=== PATIENT | female | born 1935 | race Two or more races ===

== ENCOUNTER → 2018-01-03 | Outpatient (CLI) | payer MEDICARE ==
[2018-01-03 12:32] LABS: Calcium 10.3 mg/dL (8.4-10.2); Potassium 4.9 mmol/L (3.5-5.1)
== END | disposition home or self-care (01) ==
LOC: LABWHC1 11:23
PROVIDERS: ATTEND Internal Medicine Cardiovascular Disease
DX: E78.5 Hyperlipidemia, unspecified (principal); I10 Essential (primary) hypertension; R60.0 Localized edema
CPT/HCPCS: 36415; 80048; 80061; 84450; 84460

== ENCOUNTER → 2018-07-12 | Outpatient (CLI) | payer MEDICARE | LOC: LABPAT 14:14 | PROVIDERS: ATTEND Orthopaedic Surgery | DX: Z01.812 Encounter for preprocedural laboratory examination (principal) | CPT/HCPCS: 87070 ==

== ENCOUNTER 2018-07-25 09:28 | Inpatient (IN) | payer MEDICARE ==
[2018-07-20 15:33] VITALS: BMI 28.3
--- NOTE | 2018-07-24 13:27 | HP ---
HISTORY AND PHYSICAL REASON FOR ADMISSION: Surgery 07/25/2018 Mamta Apple is an 82-year-old patient seen with symptomatic right knee osteoarthritis. Treatment options were discussed with her. She elected to proceed with right total knee arthroplasty. Consent was obtained. Medical clearance provided by Dr. Ozzie Grant. Cardiac clearance by Dr. Pereira. PAST MEDICAL HISTORY: Hypertension, gout. PAST SURGICAL HISTORY: Cholecystectomy. MEDICATIONS: Accupril, allopurinol, Coumadin, Lozol, Tenormin, hydrochlorothiazide. ALLERGIES: CODEINE, INDOCIN, CORTISONE, COLCHICINE. SOCIAL HISTORY: Patient denies tobacco use. PHYSICAL EXAMINATION: Evaluation right knee range of motion is negative 2 to 90 degrees. Tenderness medial joint line. Mild effusion. Crepitus medial patellofemoral compartments. Pain with patellofemoral compression. Ligaments stable. Hip rotation without pain. Distal neurovascular exam intact. RADIOGRAPHS: Radiographs of the right knee revealed severe medial and moderate to severe patellofemoral compartment osteoarthritis. IMPRESSION: 1. Right knee osteoarthritis. 2. Hypertension. 3. Gout. PLAN: Right total knee arthroplasty. Surgery 07/25/2018 MMODL / IJN: [id number] /
[~2018-07-25 09:28] MED LIST: ACETAMINOPHEN TAB 500 MG TAB PO ONE; HYDROmorphone 0.5 MG/0.5 ML SYRINGE IVP PRN; LIDOCAINE 1% 20 ML VIAL (10MG/ML) FOR IV START INTRADERMA PRN; MELOXICAM 7.5 MG TAB PO ONE; ONDANSETRON 4 MG/2 ML VIAL IVP ONE; TRANEXAMIC ACID 1,000 MG in SODIUM CHLORIDE 0.9% 50 ML IVPB ONE; ceFAZolin IN SWFI 2 GM/20 ML SYRINGE IVP ONE
[2018-07-25] MEDS ORDERED: MIDAZOLAM 2 MG/2 ML VIAL ONE (09:53)
[2018-07-25] MEDS: LACTATED RINGERS 1,000 ML IV SCH (10:22)
[2018-07-25 11:53] LABS: INR 1.2 (<1.2); Prothrombin Time 11.1 sec (9.0-12.0)
[2018-07-25] MEDS ORDERED: ROPIVACAINE 246.25 MG, EPINEPHrine 0.5 MG, KETOROLAC 30 MG, cloNIDine HCL/PF 80 MCG, WA... MISCELLANE ONE ×5 (11:53)
[2018-07-25] MEDS ORDERED: MIDAZOLAM 2 MG/2 ML VIAL IVP ONE (12:06)
[2018-07-25] MEDS ORDERED: ceFAZolin 3,000 MG in SODIUM CHLORIDE 0.9% IRRIGATIO 3,000 ML IRRIGATION ONE (12:44)
[2018-07-25] MEDS ORDERED: ROPIVACAINE 1,100 MG, SODIUM CHLORIDE 0.9% 330 ML MISCELLANE PRN ×2 (14:08)
[2018-07-25] MEDS ORDERED: NALOXONE 0.4 MG/ML 1 ML VIAL IV PRN (14:18)
[2018-07-25] MEDS ORDERED: traMADol 50 MG TAB PO PRN (14:18)
[2018-07-25] MEDS ORDERED: ONDANSETRON 4 MG/2 ML VIAL IVP PRN (14:18)
[2018-07-25] MEDS ORDERED: HYDROmorphone 1 MG/ML 1 ML SYRINGE IVP PRN ×3 (14:18)
[2018-07-25] MEDS ORDERED: HYDROcodone/APAP 5-325MG 1 EACH TAB PO PRN (14:18)
--- NOTE | 2018-07-25 14:18 | P.OP ---
Date of Procedure: 07/25/18 Preoperative Diagnosis: Right knee osteoarthritis Postoperative Diagnosis: Right knee osteoarthritis Procedure(s) Performed: Right total knee arthroplasty Implants: 1. Microport evolution MP CS/CR size 4 right cemented femur 2. Microport evolution MP size 4 right cemented tibial baseplate 3. Microport evolution size 4 right MP CS 14 mm polyethylene tibial insert 4. Microport advanced all polyethylene cemented patella 35 mm Anesthesia: local, spinal Surgeon: Ben Anderson Grain Farmer #1: Jarret Vazquez Estimated Blood Loss (ml): 50 Pathology: none sent Condition: stable Disposition: PACU Indications for Procedure: 82-year-old patient seen with symptomatic right knee osteoarthritis. After having treatment options discussed, she elected to proceed with total knee arthroplasty. Operative Findings: see description of procedure Description of Procedure: Patient was taken to the operative suite after having an adductor canal catheter placed by the department of anesthesia. Patient underwent a spinal anesthetic by the department of anesthesia. Patient was given preoperative IV intake antibiotics and TXA. A well-padded tourniquet was placed about the right lower extremity. The lower extremity was then prepped and draped in the normal sterile orthopedic fashion. The extremity was elevated, a tourniquet was insufflated to 300. A standard anterior incision was made sharply through skin. Dissection was taken down through the subcutaneous soft tissues down to the extensor mechanism. A medial arthrotomy was performed, patella was everted and knee was flexed. There was advanced osteoarthritis noted. I introduced my distal intramedullary femoral drill. I then introduced the distal femoral cutting jig. Fabian FLORES secured the cutting jig with 2 pins. I held retractors in position while Fabian FLORES performed the distal femoral resection through the guide area we now removed her distal femoral cutting guide. We now placed our 4-in-1 femoral cutting block and positioned and it was secured with 2 pins by Fabian FLORES while I held the block in position. The distal femoral finishing was now completed. A proximal tibial cutting guide was positioned. I held the guide in the appropriate position with both hands well Fabian FLORES inserted stabilizing pins into the guide. Proximal tibial cut was made. We now placed a trial femoral component into position, along with an appropriate size tibial tray and insert. We now took the knee through range of motion and had full extension good flexion and good overall soft tissue balance noted. The patella was everted and stabilized with 2 towel clips held by Fabian FLORES while I performed a flush with patellar quad tendon utilizing a fresh sawblade. We templated the patella, appropriate drill holes were made. An appropriate trial patella was positioned, knee was taken through full range of motion with the patella tracking very nicely. The trial patella was removed. Drill holes were made through the femoral component. All trial components were removed after marking off the appropriate rotation of the tibia. Retractors were now positioned along the proximal tibia. An appropriate keel punch was made with the appropriate size tibial guide by myself on Fabian FLORES assisted by holding retractors. At this point appropriate size implants were chosen and opened. The joint was irrigated copiously with pulse lavage mechanical irrigation. The posterior capsule was infiltrated with local analgesic. The wound was irrigated with pulse lavage mechanical irrigation. We mixed antibiotic methylmethacrylate. We placed the knee into flexion. We placed multiple retractors assisted by Fabian FLORES to expose the proximal tibia. Once the methyl methacrylate was ready, the tibial component was cemented into place removing any excess methylmethacrylate form by both myself and Fabian FLORES. The femoral component was cemented into place removing the removing any excess methylmethacrylate performed by both myself and Fabian FLORES. We then inserted the appropriate size polyethylene tibial insert. We made sure that it was locked into position. We took the knee into full extension, and then back in a flexion making sure we had removed any excess methylmethacrylate. The patellar component was then cemented down and secured with clamp. Excess methylmethacrylate removed. We kept the knee in full extension, patellar clamp in position until methylmethacrylate had hardened. Once it had hardened the patellar clamp was removed. The knee was taken through full range of motion. The patella tracked nicely. There was good soft tissue balancing. The tourniquet was now released. Additional hemostasis was achieved via electrocautery. A second gram of TXA was given. The wound again was irrigated with pulse lavage mechanical irrigation. The superficial soft tissues were infiltrated local analgesic. The extensor mechanism was repaired with Vicryl. We checked the repair with range of motion and it was stable. The subcutaneous soft tissues were repaired with Vicryl in layers. The skin was approximated with pernio/Dermabond. Sterile dressings were applied followed by loose web roll and Stanislaw bandage. The patient was transferred to a bed, and taken to recovery in stable and satisfactory condition. Fabian FLORES assisted with this complex procedure.
[2018-07-25] MEDS ORDERED: SODIUM CHLORIDE 0.9% 1,000 ML IV SCH (14:30)
--- NOTE | 2018-07-25 15:30 | XR ---
EXAMINATION TYPE: XR knee limited RT DATE OF EXAM: 07/25/2018 COMPARISON: NONE TECHNIQUE: Two views submitted HISTORY: Post op FINDINGS: There is a prosthetic knee in near anatomic alignment. There is soft tissue edema and emphysema. IMPRESSION: 1. Postoperative change. Appears in near-anatomic alignment
[2018-07-25] MEDS: ceFAZolin IN SWFI 2 GM/20 ML SYRINGE IVP SCH ×2 (18:45→23:35)
--- NOTE | 2018-07-25 20:45 | P.ONQ ---
Anesthesiology Proc Note - PNB - Peripheral Nerve Block Performed Right Adductor Canal Infusion Time Out Performed: Yes Procedure Start Time: 12:06 Procedure Stop Time: 12:15 Indication: Acute Post-Operative Pain, Requested by physician Sedation Type: Sedate with meaningful contact maintained Preparation: Sterile Dressing Position: Supine Catheter: Indwelling Needle Types: On-Q Needle Size: 100mm (4") Needle Gauge: 21 Technique: Ultrasound Injectate: 0.5% Ropivacaine (see comment for volume) (ropi .5% 20cc) Blood Aspirated: No Pain Paresthesia on Injection Noted: No Resistance on Injection: Normal Events: Uneventful and Well Tolerated
[2018-07-25] MEDS: SENNOSIDES-DOCUSATE SODIUM 1 EACH TAB PO SCH ×2 (21:17→21:18)
[2018-07-25] MEDS: HYDROcodone/APAP 5-325MG 1 EACH TAB PO PRN (21:17)
[2018-07-26] MEDS: HYDROcodone/APAP 5-325MG 1 EACH TAB PO PRN ×3 (06:46→17:51)
[2018-07-26 07:47] LABS: Basophils % (A) 1 %; Eosinophils # (A) 0.1 k/uL (0-0.7); Eosinophils % (A) 1 %; HGB 11.3 gm/dL (11.4-16.0); Lymphocytes % (A) 13 %; MCH 29.7 pg (25.0-35.0); MCHC 31.5 g/dL (31.0-37.0); MCV 94.3 fL (80.0-100.0); Mean Platelet Volume 7.1; Monocytes # (A) 0.6 k/uL (0-1.0); Monocytes % (A) 7 %; Neutrophils # (A) 5.9 k/uL (1.3-7.7); Neutrophils % (A) 77 %; Platelet Count 242 k/uL (150-450); RBC 3.82 m/uL (3.80-5.40); WBC 7.6 k/uL (3.8-10.6)
--- NOTE | 2018-07-26 08:09 | P.PN ---
Progress Note - Text 07/26 718am 82-year-old female status post total knee replacement by Dr. Anderson. Patient has an On-Q pump for postop pain control with the solution running at 8 mL an hour with a pain score of 1. Plan to continue On-Q pump infusion
[2018-07-26] MEDS: ENOXAPARIN 30 MG/0.3 ML SYRINGE SQ SCH ×2 (08:44→20:54)
[2018-07-26] MEDS: MULTIVITAMINS, THERA 1 EACH TAB PO SCH (08:44)
[2018-07-26] MEDS ORDERED: ACETAMINOPHEN TAB 500 MG TAB PO PRN (10:11)
[2018-07-26] MEDS: LACTATED RINGERS 1,000 ML IV SCH (10:22)
--- NOTE | 2018-07-26 10:40 | P.PN ---
Subjective Progress Note Date: 07/26/18 Principal diagnosis: Status post right total knee arthroplasty Patient is seen today resting in her hospital bed, she appears comfortable. She 's ambulated well with therapy. Her pain is well-controlled. She denies any chest pain or shortness of breath. Objective - Vital Signs Vital signs: Vital Signs Temp 97.8 F 07/26/18 07:00 Pulse 82 07/26/18 07:00 Resp 16 07/26/18 07:00 BP 123/71 07/26/18 07:00 Pulse Ox 99 07/26/18 07:00 Intake & Output 07/25/18 07/26/18 07/26/18 18:59 06:59 18:59 Intake Total 801 2300 120 Output Total 50 Balance 751 2300 120 Weight 72.575 kg Intake: IV 801 Intake, IV Titration 800 Amount Sodium Chloride 0.9% 1, 800 000 ml @ 50 mls/hr IV . Q20H [facility] Rx#:[id number] Oral 1500 120 Output: Estimated Blood Loss 50 Other: Voiding Method Bedside Commode # Voids 2 - Exam Right lower extremity: Incision is clean, dry, and intact. The prineo tape is in good condition. There is minimal soft tissue swelling and ecchymosis surrounding the medial and lateral aspects of the incision. Calf is soft, no tenderness with palpation. Plantar flexion, dorsiflexion, EHL, FHL are intact. Sensory exam to light touch throughout the extremity is intact, dorsal pedis pulses 2+. - Labs CBC & Chem 7: 07/26/18 06:22 Labs: Abnormal Lab Results - Last 24 Hours (Table) 07/25/18 07/26/18 Range/Units 10:23 06:22 Hgb 11.3 L (11.4-16.0) gm/dL INR 1.2 H (<1.2) Assessment and Plan Plan: Assessment: Postoperative day 1 status post right total knee arthroplasty Plan: Pain control, continue supportive oral medication GI and DVT prophylaxis, continue Lovenox until INR is therapeutic Medical recommendations Continue work with physical therapy daily dressing changes/ice and elevate encourage incentive spirometer plan for discharge to rehab in the next 2 days Time with Patient: Less than 30
[2018-07-26 11:06] LABS: INR 1.2 (<1.2); Prothrombin Time 11.1 sec (9.0-12.0)
--- NOTE | 2018-07-26 11:30 | P.CONS ---
History of Present Illness - Reason for Consult Consult date: 07/26/18 medical management Requesting physician: Ben Anderson - Chief Complaint right tka - History of Present Illness 82-year-old female who underwent right total knee arthroplasty on by Dr. Anderson. Dr. Grant was consulted for medical management. The patient was seen and examined at the bedside. Patient states her pain is tolerable. She has been up to the bathroom. Denies shortness of breath. Denies cough or congestion. Denies nausea or vomiting. Reports her appetite is good. Vital signs have been stable. She is on room air with oxygen saturations greater than 92%. She is afebrile. Patient reports she will be going to subacute rehab at the time of discharge. Review of Systems Those systems with pertinent positive or pertinent negative responses have been documented in the HPI Past Medical History Past Medical History: Atrial Fibrillation, Hypertension, Osteoarthritis (OA), Skin Disorder Additional Past Medical History / Comment(s): dog bite 3rd digit rt hand Jul-break in skin-bruising,varicose veins,steroids Jul 2018,rash to back, fungul infection left great toe History of Any Multi-Drug Resistant Organisms: None Reported Past Surgical History: Cholecystectomy Additional Past Surgical History / Comment(s): cardioversion,exploratory lap Past Anesthesia/Blood Transfusion Reactions: No Reported Reaction, Family History of Problems w/ Anesthesia Additional Past Anesthesia/Blood Transfusion Reaction / Comm: no hx blood transfusion. dtr had a hard time waking up from anesthesia. no hx blood transfusion Past Psychological History: Anxiety, Depression Smoking Status: Former smoker Past Alcohol Use History: Rare Additional Past Alcohol Use History / Comment(s): quit smoking 1985,smoke approx 3 yrs,<1ppd Past Drug Use History: None Reported - Past Family History Father Family Medical History: Deep Vein Thrombosis (DVT) Medications and Allergies Home Medications Medication Instructions Recorded Confirmed Type Acetaminophen [Tylenol] 500 mg PO Q4-6H PRN 07/20/18 07/26/18 History Allopurinol [Zyloprim] 100 mg PO DAILY@1700 07/20/18 07/26/18 History Ascorbic Acid [Vitamin C] 1,000 mg PO DAILY 07/20/18 07/26/18 History Atenolol [Tenormin] 25 mg PO DAILY@199907/20/18 07/26/18 History Cholecalciferol [Vitamin D3] 800 unit PO DAILY 07/20/18 07/26/18 History Enoxaparin [Lovenox] 80 mg SQ Q12H 07/20/18 07/26/18 History Hydrochlorothiazide [Hydrodiuril] 25 mg PO DAILY 07/20/18 07/26/18 History Quinapril HCl [Accupril] 20 mg PO BID 07/20/18 07/26/18 History Warfarin [Coumadin] 2.5 mg PO MOWEFRSA 07/20/18 07/26/18 History Warfarin [Coumadin] 1.25 mg PO SUTUTH 07/26/18 07/26/18 History Allergies Allergy/AdvReac Type Severity Reaction Status Date / Time amiodarone [From Cordarone] Allergy Unknown Verified 07/26/18 07:31 indomethacin [From Indocin] Allergy Unknown Verified 07/26/18 07:31 propranolol [From Inderal LA] Allergy Unknown Verified 07/26/18 07:31 codeine AdvReac Nausea & Verified 07/26/18 07:31 [From Tylenol-Codeine #3] Vomiting colchicine AdvReac Diarrhea Verified 07/26/18 07:31 Physical Exam Vitals: Vital Signs Temp Pulse Pulse Pulse Resp BP Pulse Ox 07/26/18 07:00 97.8 F 82 16 123/71 99 07/26/18 00:35 16 07/25/18 20:45 74 16 07/25/18 19:00 98.9 F 74 16 105/64 100 07/25/18 15:15 70 14 123/59 97 07/25/18 15:00 83 15 128/58 99 07/25/18 14:45 72 16 119/56 100 07/25/18 14:41 96.8 F L 85 16 120/65 95 07/25/18 12:28 74 18 162/72 100 Intake and Output 07/25/18 07/26/18 07/26/18 22:59 06:59 14:59 Intake Total 1500 800 120 Balance 1500 800 120 Intake: Intake, IV Titration 400 400 Amount Sodium Chloride 0.9% 1, 400 400 000 ml @ 50 mls/hr IV . Q20H [facility] Rx#:[id number] Oral 1100 400 120 Other: Voiding Method Bedside Commode # Voids 2 2 Weight 72.575 kg GENERAL: This is a 82-year-old female in no apparent distress at the time of examination. Pleasant and cooperative. HEENT: Head is atraumatic, normocephalic. Sclerae anicteric. Conjunctivae are clear. Mucus membranes of the mouth are moist. Neck is supple. RESPIRATORY: Clear to ausculation. No wheezes, rales, or rhonchi. No use of accessory muscles. Patient maintaining oxygen saturation greater than 92% CARDIOVASCULAR: S1 and S2 noted. No systolic or diastolic murmur auscultated. No JVD noted. No S3 or S4 noted. GASTROINTESTINAL: No distention noted. Abdomen soft and round. Normal active bowel sounds auscultated x 4 quadrants. No pain or tenderness noted upon palpation. INTEGUMENTARY: No cyanosis. No jaundice. No rashes noted. No cellulitis noted. EXTREMITIES: Dressing to right knee clean dry and intact. 2+ peripheral pulses. No evidence of peripheral edema. No calf tenderness noted. NEUROLOGIC: Cranial nerves II-XII intact. PSYCHIATRIC: Awake, alert, and oriented X 3. Appropriate affect. Intact judgement and insight. Results CBC & Chem 7: 07/26/18 06:22 Labs: Abnormal Lab Results - Last 24 Hours (Table) 07/25/18 07/26/18 Range/Units 10:23 06:22 Hgb 11.3 L (11.4-16.0) gm/dL INR 1.2 H (<1.2) Assessment and Plan Plan: ASSESSMENT: Osteoarthritis, status post right total knee arthroplasty History of atrial fibrillation Hypertension History of anxiety and depression PLAN: Continue postoperative care per orthopedics Pain control Activity as tolerated PT/OT Incentive spirometer 10 times hour while awake Home meds as appropriate Monitor labs GI prophylaxis: Pepcid 20mg PO BID DVT prophylaxis: Lovenox 30 mg subcu every 12 hours Continue Lovenox until INR is therapeutic. Monitor vital signs and address as appropriate Further recommendations pending patient's course Nurse practitioner note has been reviewed by physician. Signing provider agrees with the documented findings, assessment, and plan of care.
[2018-07-26] MEDS: HYDROCHLOROTHIAZIDE 25 MG TAB PO SCH (12:26)
[2018-07-26] MEDS: LISINOPRIL 20 MG TAB PO SCH ×2 (12:26→20:55)
[2018-07-26] MEDS: ALLOPURINOL 100 MG TAB PO SCH (17:51)
[2018-07-26] MEDS ORDERED: WARFARIN 2.5 MG TAB PO ONE (18:00)
[2018-07-26] MEDS ORDERED: WARFARIN 5 MG TAB PO ONE (18:00)
[2018-07-26] MEDS: ATENOLOL 25 MG TAB PO SCH (20:54)
[2018-07-26] MEDS: FAMOTIDINE 20 MG TAB PO SCH (20:55)
[2018-07-26] MEDS: SENNOSIDES-DOCUSATE SODIUM 1 EACH TAB PO SCH (20:55)
[2018-07-27 07:54] LABS: INR 1.2 (<1.2); Prothrombin Time 11.9 sec (9.0-12.0)
[2018-07-27] MEDS: HYDROcodone/APAP 5-325MG 1 EACH TAB PO PRN ×2 (07:55→18:18)
[2018-07-27] MEDS: LISINOPRIL 20 MG TAB PO SCH ×2 (07:59→20:36)
[2018-07-27] MEDS: HYDROCHLOROTHIAZIDE 25 MG TAB PO SCH (07:59)
[2018-07-27] MEDS: ENOXAPARIN 30 MG/0.3 ML SYRINGE SQ SCH ×2 (07:59→20:36)
[2018-07-27] MEDS: FAMOTIDINE 20 MG TAB PO SCH ×2 (07:59→20:36)
--- NOTE | 2018-07-27 10:30 | P.PN ---
Subjective Progress Note Date: 07/27/18 Principal diagnosis: Status post right total knee arthroplasty Patient is seen today resting in her hospital bed, she appears comfortable. She 's ambulated well with therapy. Her pain is well-controlled. She denies any chest pain or shortness of breath. Objective - Vital Signs Vital signs: Vital Signs Temp 98.8 F 07/27/18 07:00 Pulse 101 H 07/27/18 07:00 Resp 12 07/27/18 07:00 BP 144/82 07/27/18 07:00 Pulse Ox 95 07/27/18 07:00 Intake & Output 07/26/18 07/27/18 07/27/18 18:59 06:59 18:59 Intake Total 684 Balance 684 Intake: Oral 684 Other: Voiding Method Bedside Commode Toilet # Voids 3 1 - Exam Right lower extremity: Incision is clean, dry, and intact. The prineo tape is in good condition. There is minimal soft tissue swelling and ecchymosis surrounding the medial and lateral aspects of the incision. Calf is soft, no tenderness with palpation. Plantar flexion, dorsiflexion, EHL, FHL are intact. Sensory exam to light touch throughout the extremity is intact, dorsal pedis pulses 2+. - Labs CBC & Chem 7: 07/26/18 06:22 Labs: Abnormal Lab Results - Last 24 Hours (Table) 07/26/18 07/27/18 Range/Units 06:22 06:26 INR 1.2 H 1.2 H (<1.2) Assessment and Plan Plan: Assessment: Postoperative day #2 status post right total knee arthroplasty Plan: Pain control, continue supportive oral medication GI and DVT prophylaxis, continue Lovenox until INR is therapeutic Medical recommendations Continue work with physical therapy daily dressing changes/ice and elevate encourage incentive spirometer plan for discharge to rehab tomorrow Time with Patient: Less than 30
[2018-07-27] MEDS: MULTIVITAMINS, THERA 1 EACH TAB PO SCH (11:55)
[2018-07-27] MEDS: ASCORBIC ACID 500 MG TAB PO SCH (11:56)
--- NOTE | 2018-07-27 12:34 | P.PN ---
Subjective Progress Note Date: 07/27/18 07/26/2018 82-year-old female who underwent right total knee arthroplasty on by Dr. Anderson. Dr. Grant was consulted for medical management. The patient was seen and examined at the bedside. Patient states her pain is tolerable. She has been up to the bathroom. Denies shortness of breath. Denies cough or congestion. Denies nausea or vomiting. Reports her appetite is good. Vital signs have been stable. She is on room air with oxygen saturations greater than 92%. She is afebrile. Patient reports she will be going to subacute rehab at the time of discharge. 07/27/2018 Patient seen and examined at the bedside. Patient has postoperative day #2 right total knee arthroplasty. Patient states her pain is tolerable. She has been up ambulating. Denies shortness of breath. Denies cough or congestion. Denies nausea or vomiting. Reports her appetite is good. Vital signs have been stable. Dressing to right knee is clean dry and intact. Ice pack noted. Objective - Vital Signs Vital signs: Vital Signs Temp 98.8 F 07/27/18 07:00 Pulse 101 H 07/27/18 07:00 Resp 12 07/27/18 07:00 BP 144/82 07/27/18 07:00 Pulse Ox 95 07/27/18 07:00 Intake & Output 07/26/18 07/27/18 07/27/18 18:59 06:59 18:59 Intake Total 684 Balance 684 Intake: Oral 684 Other: Voiding Method Bedside Commode Toilet # Voids 3 1 - Exam GENERAL: This is a 82-year-old female in no apparent distress at the time of examination. Pleasant and cooperative. HEENT: Head is atraumatic, normocephalic. Sclerae anicteric. Conjunctivae are clear. Mucus membranes of the mouth are moist. Neck is supple. RESPIRATORY: Clear to ausculation. No wheezes, rales, or rhonchi. No use of accessory muscles. Patient maintaining oxygen saturation greater than 92% CARDIOVASCULAR: S1 and S2 noted. No systolic or diastolic murmur auscultated. No JVD noted. No S3 or S4 noted. GASTROINTESTINAL: No distention noted. Abdomen soft and round. Normal active bowel sounds auscultated x 4 quadrants. No pain or tenderness noted upon palpation. INTEGUMENTARY: No cyanosis. No jaundice. No rashes noted. No cellulitis noted. EXTREMITIES: Dressing to right knee clean dry and intact. 2+ peripheral pulses. No evidence of peripheral edema. No calf tenderness noted. NEUROLOGIC: Cranial nerves II-XII intact. PSYCHIATRIC: Awake, alert, and oriented X 3. Appropriate affect. Intact judgement and insight. - Labs CBC & Chem 7: 07/26/18 06:22 Labs: Abnormal Lab Results - Last 24 Hours (Table) 07/27/18 Range/Units 06:26 INR 1.2 H (<1.2) Assessment and Plan Plan: ASSESSMENT: Osteoarthritis, status post right total knee arthroplasty History of atrial fibrillation Hypertension History of anxiety and depression PLAN: Continue postoperative care per orthopedics Pain control Activity as tolerated PT/OT Incentive spirometer 10 times hour while awake Home meds as appropriate Monitor labs GI prophylaxis: Pepcid 20mg PO BID DVT prophylaxis: Lovenox 30 mg subcu every 12 hours Continue Lovenox until INR is therapeutic. Monitor vital signs and address as appropriate Further recommendations pending patient's course Nurse practitioner note has been reviewed by physician. Signing provider agrees with the documented findings, assessment, and plan of care.
[2018-07-27] MEDS ORDERED: WARFARIN 2 MG TAB PO ONE (18:00)
[2018-07-27] MEDS: ALLOPURINOL 100 MG TAB PO SCH (18:18)
[2018-07-27] MEDS: SENNOSIDES-DOCUSATE SODIUM 1 EACH TAB PO SCH (20:36)
[2018-07-27] MEDS: ATENOLOL 25 MG TAB PO SCH (20:36)
[2018-07-27 20:46] VITALS: RESP 16
[2018-07-28 07:06] VITALS: BP 152/83; PULSE 85; TEMP 98.5
[2018-07-28 07:24] LABS: Basophils # (A) 0.1 k/uL (0-0.2); Basophils % (A) 1 %; Eosinophils # (A) 0.1 k/uL (0-0.7); Eosinophils % (A) 1 %; HCT 35.1 % (34.0-46.0); HGB 11.4 gm/dL (11.4-16.0); Lymphocytes # (A) 1.7 k/uL (1.0-4.8); Lymphocytes % (A) 17 %; MCH 30.3 pg (25.0-35.0); MCHC 32.7 g/dL (31.0-37.0); MCV 92.7 fL (80.0-100.0); Mean Platelet Volume 7.1; Monocytes # (A) 0.7 k/uL (0-1.0); Monocytes % (A) 7 %; Neutrophils # (A) 7.1 k/uL (1.3-7.7); Neutrophils % (A) 72 %; Platelet Count 246 k/uL (150-450); RBC 3.78 m/uL (3.80-5.40); RDW 14.1 % (11.5-15.5); WBC 9.9 k/uL (3.8-10.6)
[2018-07-28 07:26] LABS: INR 1.4 (<1.2); Prothrombin Time 12.8 sec (9.0-12.0)
[2018-07-28] MEDS: HYDROCHLOROTHIAZIDE 25 MG TAB PO SCH (08:21)
[2018-07-28] MEDS: FAMOTIDINE 20 MG TAB PO SCH (08:21)
[2018-07-28] MEDS: LISINOPRIL 20 MG TAB PO SCH (08:21)
[2018-07-28] MEDS: ENOXAPARIN 30 MG/0.3 ML SYRINGE SQ SCH (08:21)
--- NOTE | 2018-07-28 08:58 | P.PN ---
Subjective Progress Note Date: 07/28/18 Principal diagnosis: Status post right total knee arthroplasty Patient is seen today resting in her hospital bed, she appears comfortable. She 's ambulated well with therapy. Her pain is well-controlled. She denies any chest pain or shortness of breath. Objective - Vital Signs Vital signs: Vital Signs Temp 98.5 F 07/28/18 07:04 Pulse 85 07/28/18 07:04 Resp 16 07/28/18 07:04 BP 152/83 07/28/18 07:04 Pulse Ox 98 07/28/18 07:04 Intake & Output 07/27/18 07/28/18 07/28/18 18:59 06:59 18:59 Intake Total 200 Balance 200 Intake: Other 200 Other: Voiding Method Toilet Toilet # Voids 2 1 - Exam Right lower extremity: Incision is clean, dry, and intact. The prineo tape is in good condition. There is minimal soft tissue swelling and ecchymosis surrounding the medial and lateral aspects of the incision. Calf is soft, no tenderness with palpation. Plantar flexion, dorsiflexion, EHL, FHL are intact. Sensory exam to light touch throughout the extremity is intact, dorsal pedis pulses 2+. - Labs CBC & Chem 7: 07/28/18 06:31 Labs: Abnormal Lab Results - Last 24 Hours (Table) 07/28/18 07/28/18 Range/Units 06:31 06:31 RBC 3.78 L (3.80-5.40) m/uL PT 12.8 H (9.0-12.0) sec INR 1.4 H (<1.2) Assessment and Plan Plan: Assessment: Postoperative day #3 status post right total knee arthroplasty Plan: Pain control, we'll discharge home on oral medication GI and DVT prophylaxis, continue Lovenox until INR is therapeutic Medical recommendations Continue work with physical therapy daily dressing changes/ice and elevate encourage incentive spirometer plan for discharge to rehab today Time with Patient: Less than 30
--- NOTE | 2018-07-28 09:02 | P.DS ---
Providers Date of admission: 07/26/18 00:30 Expected date of discharge: 07/28/18 Attending physician: Ben Anderson Consults: 07/25/18 14:18 Consult Physician Routine Consulting Provider: Ozzie Grant Reason/Comments: Medical management Do you want consulting provider notified?: Yes Primary care physician: Ozzie Grant [place] [facility] Course: Date of admission: 07/25/2018 Date of discharge: 07/28/2018 Admission diagnosis: Status post right total knee arthroplasty Discharge diagnosis: Same Attending physician: Dr. Anderson Surgical procedures: Right total knee arthroplasty Brief history: Patient is a 82-year-old female with a history of progressive primary right knee osteoarthritis. At this point patient has failed conservative treatment measures and has opted to proceed with a elective right total knee arthroplasty. Hospital course: Details of patient's surgery can be found in operative report. Patient tolerated the procedure well and was subsequently transported to orthopedic floor. Patient's orthopeidc and medical care was provided daily. Patient had daily laboratory tests performed for evaluation of overall blood counts. Patient had daily physical therapy to include strengthening range of motion as well as education with walker ambulation. Patient had daily CPM usage as part of their physical therapy program. Patient was treated with Lovenox and Coumadin for their postoperative DVT prophylaxis during their inpatient stay. Patient was noted to have a relatively uneventful postoperative course. Patient reported satisfactory pain control with oral pain medications by postoperative day 0. Patient showed satisfactory progress with physical therapy. Patient moved steadily through the program and had no difficulty meeting the goals by postoperative day 3. Given patient's otherwise satisfactory course and having met physical therapy goals, plan is to discharge patient rehab on postoperative day 3. Discharge condition/disposition: Patient will be discharged rehab in stable condition. Discharge medications: Instructions are given on resumption of patient's normal daily medications per primary care recommendation, in addition patient will be prescribed Sod 5 mg/325 mg. Discharge instructions: 1. Wound care and infection precautions, keep incision dry and covered while showering, no lotions, creams, moisturizers. No soaking, tubs, pools, hottubs. Do not scrub over the incision. 2. Weight-bear as tolerated with walker / cane until follow-up. 3. Ice and elevate when necessary. Do not exceed 20 minutes per hour with ice pack. 4. Utilize compression sleeve until seen at first follow up appointment. 5. Visiting nursing care. 6. Home physical therapy including home CPM. 7. Pain meds and anticoagulants per prescription. 8. Pain medication has potential to cause constipation. Increase oral fluid and fiber intake. Contact primary care provider if you have not had a bowel movement within 48 hours after discharge 9. No anti-inflammatory medication until discussed at first post operative visit, this including Motrin, Aleve, Mobic, Diclofenac. 10. Follow up in office at 2 weeks postop with Fabian Vazquez PA-C 11. Follow up with your primary care doctor 7-10 days after discharge. 12. Contact [facility] with any questions, . Procedures: Right total knee arthroplasty Patient Condition at Discharge: Good Plan - Discharge Summary Discharge Rx Participant: No New Discharge Prescriptions: New Hydrocodone/Acetaminophen [Sod 5-325] 1 each PO Q6HR PRN #28 tab PRN Reason: Pain No Action Cholecalciferol [Vitamin D3] 800 unit PO DAILY Ascorbic Acid [Vitamin C] 1,000 mg PO DAILY Enoxaparin [Lovenox] 80 mg SQ Q12H Warfarin [Coumadin] 2.5 mg PO MOWEFRSA Allopurinol [Zyloprim] 100 mg PO DAILY@1700 Quinapril HCl [Accupril] 20 mg PO BID Hydrochlorothiazide [Hydrodiuril] 25 mg PO DAILY Atenolol [Tenormin] 25 mg PO DAILY@1999 Acetaminophen [Tylenol] 500 mg PO Q4-6H PRN PRN Reason: Pain Warfarin [Coumadin] 1.25 mg PO SUTUTH Discharge Medication List Acetaminophen [Tylenol] 500 mg PO Q4-6H PRN 07/20/18 [History] Allopurinol [Zyloprim] 100 mg PO DAILY@1700 07/20/18 [History] Ascorbic Acid [Vitamin C] 1,000 mg PO DAILY 07/20/18 [History] Atenolol [Tenormin] 25 mg PO DAILY@199907/20/18 [History] Cholecalciferol [Vitamin D3] 800 unit PO DAILY 07/20/18 [History] Enoxaparin [Lovenox] 80 mg SQ Q12H 07/20/18 [History] Hydrochlorothiazide [Hydrodiuril] 25 mg PO DAILY 07/20/18 [History] Quinapril HCl [Accupril] 20 mg PO BID 07/20/18 [History] Warfarin [Coumadin] 2.5 mg PO MOWEFRSA 07/20/18 [History] Warfarin [Coumadin] 1.25 mg PO SUTUTH 07/26/18 [History] Hydrocodone/Acetaminophen [Sod 5-325] 1 each PO Q6HR PRN #28 tab 07/28/18 [Rx] Follow up Appointment(s)/Referral(s): Jarret Vazquez PAC [PHYSICIAN STRATEGY MANAGER] - 2 Weeks Ambulatory/Diagnostic Orders: Prothrombin Time INR [LAB.AMB] Location: None Selected Activity/Diet/Wound Care/Special Instructions: Orthopedic Discharge Instructions: 1. Wound care and infection precautions, keep incision dry and covered while showering, no lotions, creams, moisturizers. No soaking, pools, hot tubs. Do not scrub over incision. 2. Weight-bear as tolerated with walker / cane until follow-up. 3. Ice and elevate when necessary. Do not exceed 20 minutes per hour with ice pack. 4. Utilize compression sleeve until seen at first follow up appointment. 5. Pain meds and anticoagulants per prescription. 6. Pain medication has potential to cause constipation. Increase oral fluid and fiber intake. Contact primary care provider if you have not had a bowel movement within 48 hours after discharge. 7. No anti-inflammatory medication until discussed at first post operative visit, this including Motrin, Aleve, Mobic, Diclofenac. 8. Follow up in office at 2 weeks postop with Fabian Vazquez PA-C 9. Follow up with your primary care doctor 7-10 days after discharge. 10. Contact [facility] with any questions, . PLEASE CONTINUE LOVENOX AND COUMADIN UNTIL INR IS 2-3 Discharge Disposition: TRANSFER TO SNF/ECF
--- NOTE | 2018-07-28 09:52 | P.PN ---
Subjective Progress Note Date: 07/28/18 07/26/2018 82-year-old female who underwent right total knee arthroplasty on by Dr. Anderson. Dr. Grant was consulted for medical management. The patient was seen and examined at the bedside. Patient states her pain is tolerable. She has been up to the bathroom. Denies shortness of breath. Denies cough or congestion. Denies nausea or vomiting. Reports her appetite is good. Vital signs have been stable. She is on room air with oxygen saturations greater than 92%. She is afebrile. Patient reports she will be going to subacute rehab at the time of discharge. 07/27/2018 Patient seen and examined at the bedside. Patient has postoperative day #2 right total knee arthroplasty. Patient states her pain is tolerable. She has been up ambulating. Denies shortness of breath. Denies cough or congestion. Denies nausea or vomiting. Reports her appetite is good. Vital signs have been stable. Dressing to right knee is clean dry and intact. Ice pack noted. 07/28/2018 Patient seen and examined at the bedside. Patient is awake and alert. Patient states her pain is tolerable. She's been up ambulating in the hallways. She denies shortness of breath, cough, or congestion. Tolerating PO . Denies nausea or vomiting. She remains stable. She is anticipating discharge today to subacute rehab. Objective - Vital Signs Vital signs: Vital Signs Temp 98.5 F 07/28/18 07:04 Pulse 85 07/28/18 07:04 Resp 16 07/28/18 07:04 BP 152/83 07/28/18 07:04 Pulse Ox 98 07/28/18 07:04 Intake & Output 07/27/18 07/28/18 07/28/18 18:59 06:59 18:59 Intake Total 200 Balance 200 Intake: Other 200 Other: Voiding Method Toilet Toilet # Voids 2 1 - Exam GENERAL: This is a 82-year-old female in no apparent distress at the time of examination. Pleasant and cooperative. HEENT: Head is atraumatic, normocephalic. Sclerae anicteric. Conjunctivae are clear. Mucus membranes of the mouth are moist. Neck is supple. RESPIRATORY: Clear to ausculation. No wheezes, rales, or rhonchi. No use of accessory muscles. Patient maintaining oxygen saturation greater than 92% CARDIOVASCULAR: S1 and S2 noted. No systolic or diastolic murmur auscultated. No JVD noted. No S3 or S4 noted. GASTROINTESTINAL: No distention noted. Abdomen soft and round. Normal active bowel sounds auscultated x 4 quadrants. No pain or tenderness noted upon palpation. INTEGUMENTARY: No cyanosis. No jaundice. No rashes noted. No cellulitis noted. EXTREMITIES: Dressing to right knee clean dry and intact. 2+ peripheral pulses. No evidence of peripheral edema. No calf tenderness noted. NEUROLOGIC: Cranial nerves II-XII intact. PSYCHIATRIC: Awake, alert, and oriented X 3. Appropriate affect. Intact judgement and insight. - Labs CBC & Chem 7: 07/28/18 06:31 Labs: Abnormal Lab Results - Last 24 Hours (Table) 07/28/18 07/28/18 Range/Units 06:31 06:31 RBC 3.78 L (3.80-5.40) m/uL PT 12.8 H (9.0-12.0) sec INR 1.4 H (<1.2) Assessment and Plan Plan: ASSESSMENT: Osteoarthritis, status post right total knee arthroplasty History of atrial fibrillation Hypertension History of anxiety and depression PLAN: Patient is cleared from a medical standpoint to be discharged today to subacute rehab, when cleared by orthopedics. Patient is to resume her home medications. Continue Lovenox until INR is therapeutic between 2-3. The patient is to follow -up outpatient with Dr. Grant one week after discharge from subacute rehab Nurse practitioner note has been reviewed by physician. Signing provider agrees with the documented findings, assessment, and plan of care.
[2018-07-28] MEDS: MULTIVITAMINS, THERA 1 EACH TAB PO SCH (11:44)
[2018-07-28] MEDS: ASCORBIC ACID 500 MG TAB PO SCH (11:44)
[2018-07-28] MEDS: HYDROcodone/APAP 5-325MG 1 EACH TAB PO PRN (14:55)
[2018-07-28] MEDS ORDERED: WARFARIN 3 MG TAB PO ONE (18:00)
== END 2018-07-28 15:07 | DRG 470 ==
LOC: OR 09:28 → 3SUR 12:55 → OR 07-26 00:36 → OBSVTOIN 07-26 13:30
PROVIDERS: ADMIT Orthopaedic Surgery; ATTEND Orthopaedic Surgery
PROC: 0SRC0J9 Replacement of Right Knee Joint with Synthetic Substitute, Cemented, Open Approach (ICD-10-PCS; principal; 2018-07-25 10:25)
DX: M17.11 Unilateral primary osteoarthritis, right knee (principal); Z79.01 Long term (current) use of anticoagulants; I10 Essential (primary) hypertension; I48.91 Unspecified atrial fibrillation; M10.9 Gout, unspecified; Z87.891 Personal history of nicotine dependence; F41.9 Anxiety disorder, unspecified; F32.9 Major depressive disorder, single episode, unspecified; Z88.6 Allergy status to analgesic agent; Z88.5 Allergy status to narcotic agent; Z88.8 Allergy status to other drugs, medicaments and biological substances; Z79.899 Other long term (current) drug therapy
CPT/HCPCS: 85025; 85610; 88300

== ENCOUNTER 2021-10-07 16:10 | Emergency (ER) | payer MEDICARE ==
[2021-10-07 16:27] VITALS: RESP 18
--- NOTE | 2021-10-07 16:47 | ED ---
General Adult HPI - General Chief complaint: Recheck/Abnormal Lab/Rx Stated complaint: low o2/AMS Time Seen by Provider: 10/07/21 16:25 Source: patient, EMS Mode of arrival: EMS - History of Present Illness Initial comments: Dictation was produced using [employer] dictation software. please excuse any grammatical, word or spelling errors. Chief Complaint: 85-year-old female sent to the emergency department from a [facility] for confusion and low oxygen History of Present Illness: Patient is a 85-year-old female she has multiple comorbidities. She has a history of worsening dementia. She is here in emergency department for concerns of low oxygen and confusion. Patient takes sedating medications prescribed by psychiatrists for aggressive behavior. She does have a history of dementia. The last couple days she's been more alert and aggressive towards staff. Patient does not want be here in emergency department. She has no medical complaints. Son who is at the bedside reports that patient appears to be a baseline in fact maybe even better than her usual baseline. Supposedly patient had low oxygen levels measured at home. There have been having difficulties obtaining blood specimen and urine for evaluation. Patient has no complaints. No pain complaints. No shortness of breath. The ROS documented in this emergency department record has been reviewed and confirmed by me. Those systems with pertinent positive or negative responses have been documented in the HPI. All other systems are other negative and/or noncontributory. PHYSICAL EXAM: General Impression: Alert and oriented x3, not in acute distress HEENT: Normocephalic atraumatic, extra-ocular movements intact, pupils equal and reactive to light bilaterally, mucous membranes moist. Cardiovascular: Heart regular rate and rhythm Chest: Able to complete full sentences, no retractions, no tachypnea Abdomen: abdomen soft, non-tender, non-distended, no organomegaly Musculoskeletal: Pulses present and equal in all extremities, no peripheral edema Motor: no focal deficits noted Neurological: CN II-XII grossly intact, no focal motor or sensory deficits noted Skin: Intact with no visualized rashes Psych: Normal affect and mood ED course: 85-year-old well-appearing female presents emergency department for alleged hypoxia and confusion. vital signs stable upon arrival. Patient is not hypoxic. She is 100% on room air. She is alert and oriented 4 pleasant and interactive. She's not showing any signs of confusion. Son at the bedside endorses that patient looks well. Son is agreeable with obtaining basic labs and urine studies. laboratory evaluation obtained. Hemoglobin was 9.3. Coag panel is unremarkable. Metabolic panel is negative. Urinalysis is concerning for urinary tract infection. Patient given 1 dose of ceftriaxone. She is given prescription for antibiotics. Patient is questionably she if she had black or bloody stools. She denies. Patient is to have her hemoglobin monitored and to return to the emergency department if she has any signs of black stool or bleeding. We do not have GI at our facility this week. EKG interpretation: Ventricular rate 85, A. fib, QRS 82, QTc 440. No OK prolongation, no QTC prolongation, no ST or T-wave changes noted. No old EKG for comparison. Overall, this EKG is unremarkable Patient's clinical presentation was of confusion with memory issues not exactly aphasia. She is well-appearing at bedside. Disposition options were discussed with patient she wants any discharge. She states she has an appointment with her primary care physician tomorrow. Patient given aspirin. She is observed in emergency department for approximately 3 hours and 30 minutes. She is stable appearing at 735. She is agreeable to plan. Return precautions discussion understands that she should seek emergency medical attention if she has recurrence of symptoms especially with includes noticed any paresthesias to one side of the body, facial droop and persistent confusion. - Related Data Home Medications Medication Instructions Recorded Confirmed atenoloL [Tenormin] 25 mg PO HS@199907/20/18 10/07/21 Acetaminophen [Tylenol] 650 mg PO Q4H PRN 10/07/21 10/07/21 Apixaban [Eliquis] 2.5 mg PO BID@0800,1600 10/07/21 10/07/21 Ascorbic Acid [Vitamin C] 250 mg PO DAILY@0800 10/07/21 10/07/21 Aspirin 81 mg PO DAILY@0800 10/07/21 10/07/21 Cholecalciferol [Vitamin D3 (25 25 mcg PO DAILY@0800 10/07/21 10/07/21 Mcg = 1000 Iu)] Docusate Sodium [Dok] 100 mg PO BID@0800,1600 10/07/21 10/07/21 Donepezil HCl [Aricept] 5 mg PO HS@199910/07/21 10/07/21 Famotidine 20 mg PO DAILY@0800 10/07/21 10/07/21 Multivitamins, Thera [Multivitamin 1 tab PO DAILY@0800 10/07/21 10/07/21 (formulary)] lisinopriL [Zestril] 20 mg PO DAILY@0600 10/07/21 10/07/21 Allergies Allergy/AdvReac Type Severity Reaction Status Date / Time amiodarone [From Cordarone] Allergy Unknown Verified 10/07/21 17:40 indomethacin [From Indocin] Allergy Unknown Verified 10/07/21 17:40 propranolol [From Inderal LA] Allergy Unknown Verified 10/07/21 17:40 codeine AdvReac Nausea & Verified 10/07/21 17:40 [From Tylenol-Codeine #3] Vomiting colchicine AdvReac Diarrhea Verified 10/07/21 17:40 Review of Systems ROS Statement: Those systems with pertinent positive or pertinent negative responses have been documented in the HPI. ROS Other: All systems not noted in ROS Statement are negative. Past Medical History Past Medical History: Atrial Fibrillation, Hypertension, Osteoarthritis (OA), Skin Disorder Additional Past Medical History / Comment(s): dog bite 3rd digit rt hand Jul-break in skin-bruising,varicose veins,steroids Jul 2018,rash to back,fungul infection left great toe History of Any Multi-Drug Resistant Organisms: None Reported Past Surgical History: Cholecystectomy Additional Past Surgical History / Comment(s): cardioversion,exploratory lap Past Anesthesia/Blood Transfusion Reactions: No Reported Reaction, Family History of Problems w/ Anesthesia Additional Past Anesthesia/Blood Transfusion Reaction / Comment(s): no hx blood transfusion. dtr had a hard time waking up from anesthesia. no hx blood transfusion Past Psychological History: Anxiety, Depression Smoking Status: Former smoker Past Alcohol Use History: Rare Past Drug Use History: None Reported - Past Family History Father Family Medical History: Deep Vein Thrombosis (DVT) Course Vital Signs 10/07/21 10/07/21 10/07/21 16:17 17:42 19:15 Temperature 98.2 F Pulse Rate 79 83 Respiratory 18 18 18 Rate Blood Pressure 150/86 127/82 O2 Sat by Pulse 100 100 Oximetry Medical Decision Making - Lab Data Result diagrams: 10/07/21 17:06 10/07/21 17:06 Lab Results 10/07/21 10/07/21 10/07/21 Range/Units 17:00 17:06 17:06 WBC 10.9 H (3.8-10.6) k/uL RBC 2.96 L (3.80-5.40) m/uL Hgb 9.3 L (11.4-16.0) gm/dL Hct 28.9 L (34.0-46.0) % MCV 97.5 (80.0-100.0) fL MCH 31.5 (25.0-35.0) pg MCHC 32.3 (31.0-37.0) g/dL RDW 14.2 (11.5-15.5) % Plt Count 277 (150-450) k/uL MPV 7.4 Neutrophils % 62 % Lymphocytes % 17 % Monocytes % 9 % Eosinophils % 8 % Basophils % 1 % Neutrophils # 6.8 (1.3-7.7) k/uL Lymphocytes # 1.9 (1.0-4.8) k/uL Monocytes # 0.9 (0-1.0) k/uL Eosinophils # 0.9 H (0-0.7) k/uL Basophils # 0.1 (0-0.2) k/uL Hypochromasia Slight PT 10.9 (9.0-12.0) sec INR 1.0 (<1.2) Sodium 145 (137-145) mmol/L Potassium 4.1 (3.5-5.1) mmol/L Chloride 111 H (98-107) mmol/L Carbon Dioxide 24 (22-30) mmol/L Anion Gap 10 mmol/L BUN 50 H (7-17) mg/dL Creatinine 1.35 H (0.52-1.04) mg/dL Est GFR (CKD-EPI)AfAm 42 (>60 ml/min/1.73 sqM) Est GFR (CKD-EPI)NonAf 36 (>60 ml/min/1.73 sqM) Glucose 93 (74-99) mg/dL Calcium 9.3 (8.4-10.2) mg/dL Magnesium 2.2 (1.6-2.3) mg/dL Urine Color Urine Appearance (Clear) Urine pH (5.0-8.0) Ur Specific [place] (1.001-1.035) Urine Protein (Negative) Urine Glucose (UA) (Negative) Urine Ketones (Negative) Urine Blood (Negative) Urine Nitrite (Negative) Urine Bilirubin (Negative) Urine Urobilinogen (<2.0) mg/dL Ur Leukocyte Esterase (Negative) Urine RBC (0-5) /hpf Urine WBC (0-5) /hpf Urine WBC Clumps (None) /hpf Ur Squamous Epith Cells (0-4) /hpf Urine Bacteria (None) /hpf Urine Mucus (None) /hpf Urine Yeast (Budding) (None) /hpf 10/07/21 Range/Units 17:33 WBC (3.8-10.6) k/uL RBC (3.80-5.40) m/uL Hgb (11.4-16.0) gm/dL Hct (34.0-46.0) % MCV (80.0-100.0) fL MCH (25.0-35.0) pg MCHC (31.0-37.0) g/dL RDW (11.5-15.5) % Plt Count (150-450) k/uL MPV Neutrophils % % Lymphocytes % % Monocytes % % Eosinophils % % Basophils % % Neutrophils # (1.3-7.7) k/uL Lymphocytes # (1.0-4.8) k/uL Monocytes # (0-1.0) k/uL Eosinophils # (0-0.7) k/uL Basophils # (0-0.2) k/uL Hypochromasia PT (9.0-12.0) sec INR (<1.2) Sodium (137-145) mmol/L Potassium (3.5-5.1) mmol/L Chloride (98-107) mmol/L Carbon Dioxide (22-30) mmol/L Anion Gap mmol/L BUN (7-17) mg/dL Creatinine (0.52-1.04) mg/dL Est GFR (CKD-EPI)AfAm (>60 ml/min/1.73 sqM) Est GFR (CKD-EPI)NonAf (>60 ml/min/1.73 sqM) Glucose (74-99) mg/dL Calcium (8.4-10.2) mg/dL Magnesium (1.6-2.3) mg/dL Urine Color Yellow Urine Appearance Cloudy H (Clear) Urine pH 5.5 (5.0-8.0) Ur Specific [place] 1.027 (1.001-1.035) Urine Protein Trace H (Negative) Urine Glucose (UA) Negative (Negative) Urine Ketones Negative (Negative) Urine Blood Negative (Negative) Urine Nitrite Positive H (Negative) Urine Bilirubin Negative (Negative) Urine Urobilinogen <2.0 (<2.0) mg/dL Ur Leukocyte Esterase Large H (Negative) Urine RBC 7 H (0-5) /hpf Urine WBC 36 H (0-5) /hpf Urine WBC Clumps Occasional H (None) /hpf Ur Squamous Epith Cells 2 (0-4) /hpf Urine Bacteria Many H (None) /hpf Urine Mucus Occasional H (None) /hpf Urine Yeast (Budding) Rare H (None) /hpf Disposition Clinical Impression: Confusion Disposition: HOME SELF-CARE Condition: Fair Instructions (If sedation given, give patient instructions): Altered Mental Status (ED) Is patient prescribed a controlled substance at d/c from ED?: No Referrals: Ozzie Grant DO [Primary Care Provider] - 1-2 days
[2021-10-07 17:13] LABS: Basophils # (A) 0.1 k/uL (0-0.2); Basophils % (A) 1 %; Eosinophils # (A) 0.9 k/uL (0-0.7); Eosinophils % (A) 8 %; HCT 28.9 % (34.0-46.0); HGB 9.3 gm/dL (11.4-16.0); Hypochromasia Slight; Lymphocytes # (A) 1.9 k/uL (1.0-4.8); Lymphocytes % (A) 17 %; MCH 31.5 pg (25.0-35.0); MCHC 32.3 g/dL (31.0-37.0); MCV 97.5 fL (80.0-100.0); Mean Platelet Volume 7.4; Monocytes # (A) 0.9 k/uL (0-1.0); Monocytes % (A) 9 %; Neutrophils # (A) 6.8 k/uL (1.3-7.7); Neutrophils % (A) 62 %; Platelet Count 277 k/uL (150-450); RBC 2.96 m/uL (3.80-5.40); RDW 14.2 % (11.5-15.5); WBC 10.9 k/uL (3.8-10.6)
[2021-10-07 17:24] LABS: Calcium 9.3 mg/dL (8.4-10.2); Magnesium 2.2 mg/dL (1.6-2.3); Potassium 4.1 mmol/L (3.5-5.1)
[2021-10-07 17:46] LABS: Prothrombin Time 10.9 sec (9.0-12.0)
[2021-10-07 17:49] LABS: Appearance,Urine Cloudy (Clear); Bacteria,Urine Many /hpf; Bilirubin,Urine Negative (Negative); Blood,Urine Negative (Negative); Budding Yeast,Urine Rare /hpf; Color,Urine Yellow; Glucose,Urine (UA) Negative (Negative); Ketones,Urine Negative (Negative); Leukocyte Esterase,Urine Large (Negative); Mucus,Urine Occasional /hpf; Nitrite,Urine Positive (Negative); PH, Urine 5.5 (5.0-8.0); Protein,Urine Trace (Negative); RBC,Urine 7 /hpf (0-5); Specific Gravity,Urine 1.027 (1.001-1.035); Squamous Epithelial Cell,Urine 2 /hpf (0-4); Urobilinogen,Urine <2.0 mg/dL (<2.0); WBC,Urine 36 /hpf (0-5)
[2021-10-07] MEDS ORDERED: cefTRIAXone IN SWFI 1,000 MG/10 ML SYRINGE IVP STA (19:31)
[2021-10-07] MEDS ORDERED: ASPIRIN 81 MG PO STA (19:34)
--- NOTE | 2021-10-07 19:38 | ED ---
Medical Decision Making - Medical Decision Making Dictation was produced using [employer] dictation software. please excuse any grammatical, word or spelling errors. Chief Complaint: 85-year-old female sent to the emergency department from a [facility] for confusion and low oxygen History of Present Illness: Patient is a 85-year-old female she has multiple comorbidities. She has a history of worsening dementia. She is here in emergency department for concerns of low oxygen and confusion. Patient takes sedating medications prescribed by psychiatrists for aggressive behavior. She does have a history of dementia. The last couple days she's been more alert and aggressive towards staff. Patient does not want be here in emergency department. She has no medical complaints. Son who is at the bedside reports that patient appears to be a baseline in fact maybe even better than her usual baseline. Supposedly patient had low oxygen levels measured at home. There have been having difficulties obtaining blood specimen and urine for evaluation. Patient has no complaints. No pain complaints. No shortness of breath. The ROS documented in this emergency department record has been reviewed and confirmed by me. Those systems with pertinent positive or negative responses have been documented in the HPI. All other systems are other negative and/or noncontributory. PHYSICAL EXAM: General Impression: Alert and oriented x3, not in acute distress HEENT: Normocephalic atraumatic, extra-ocular movements intact, pupils equal and reactive to light bilaterally, mucous membranes moist. Cardiovascular: Heart regular rate and rhythm Chest: Able to complete full sentences, no retractions, no tachypnea Abdomen: abdomen soft, non-tender, non-distended, no organomegaly Musculoskeletal: Pulses present and equal in all extremities, no peripheral edema Motor: no focal deficits noted Neurological: CN II-XII grossly intact, no focal motor or sensory deficits noted Skin: Intact with no visualized rashes Psych: Normal affect and mood ED course: 85-year-old well-appearing female presents emergency department for alleged hypoxia and confusion. vital signs stable upon arrival. Patient is not hypoxic. She is 100% on room air. She is alert and oriented 4 pleasant and interactive. She's not showing any signs of confusion. Son at the bedside endorses that patient looks well. Son is agreeable with obtaining basic labs and urine studies. laboratory evaluation obtained. Hemoglobin was 9.3. Coag panel is unremarkable. Metabolic panel is negative. Urinalysis is concerning for urinary tract infection. Patient given 1 dose of ceftriaxone. She is given prescription for antibiotics. Patient is questionably she if she had black or bloody stools. She adamantly denies. Patient refusing rectal exam. Patient is to have her hemoglobin monitored and to return to the emergency department if she has any signs of black stool or bleeding. We do not have GI at our facility this week. Spoke with Dr. Ozzie Grant who is agreeable with the plan. He preferred that patient follow-up in his office in the next 2 days. He is aware patient's hemoglobin level and UTI. EKG interpretation: Ventricular rate 85, A. fib, QRS 82, QTc 440. No [place] prolongation, no QTC prolongation, no ST or T-wave changes noted. No old EKG for comparison. Overall, this EKG is unremarkable - Lab Data Result diagrams: 10/07/21 17:06 10/07/21 17:06 Lab Results 10/07/21 10/07/21 10/07/21 Range/Units 17:00 17:06 17:06 WBC 10.9 H (3.8-10.6) k/uL RBC 2.96 L (3.80-5.40) m/uL Hgb 9.3 L (11.4-16.0) gm/dL Hct 28.9 L (34.0-46.0) % MCV 97.5 (80.0-100.0) fL MCH 31.5 (25.0-35.0) pg MCHC 32.3 (31.0-37.0) g/dL RDW 14.2 (11.5-15.5) % Plt Count 277 (150-450) k/uL MPV 7.4 Neutrophils % 62 % Lymphocytes % 17 % Monocytes % 9 % Eosinophils % 8 % Basophils % 1 % Neutrophils # 6.8 (1.3-7.7) k/uL Lymphocytes # 1.9 (1.0-4.8) k/uL Monocytes # 0.9 (0-1.0) k/uL Eosinophils # 0.9 H (0-0.7) k/uL Basophils # 0.1 (0-0.2) k/uL Hypochromasia Slight PT 10.9 (9.0-12.0) sec INR 1.0 (<1.2) Sodium 145 (137-145) mmol/L Potassium 4.1 (3.5-5.1) mmol/L Chloride 111 H (98-107) mmol/L Carbon Dioxide 24 (22-30) mmol/L Anion Gap 10 mmol/L BUN 50 H (7-17) mg/dL Creatinine 1.35 H (0.52-1.04) mg/dL Est GFR (CKD-EPI)AfAm 42 (>60 ml/min/1.73 sqM) Est GFR (CKD-EPI)NonAf 36 (>60 ml/min/1.73 sqM) Glucose 93 (74-99) mg/dL Calcium 9.3 (8.4-10.2) mg/dL Magnesium 2.2 (1.6-2.3) mg/dL Urine Color Urine Appearance (Clear) Urine pH (5.0-8.0) Ur Specific [place] (1.001-1.035) Urine Protein (Negative) Urine Glucose (UA) (Negative) Urine Ketones (Negative) Urine Blood (Negative) Urine Nitrite (Negative) Urine Bilirubin (Negative) Urine Urobilinogen (<2.0) mg/dL Ur Leukocyte Esterase (Negative) Urine RBC (0-5) /hpf Urine WBC (0-5) /hpf Urine WBC Clumps (None) /hpf Ur Squamous Epith Cells (0-4) /hpf Urine Bacteria (None) /hpf Urine Mucus (None) /hpf Urine Yeast (Budding) (None) /hpf 10/07/21 Range/Units 17:33 WBC (3.8-10.6) k/uL RBC (3.80-5.40) m/uL Hgb (11.4-16.0) gm/dL Hct (34.0-46.0) % MCV (80.0-100.0) fL MCH (25.0-35.0) pg MCHC (31.0-37.0) g/dL RDW (11.5-15.5) % Plt Count (150-450) k/uL MPV Neutrophils % % Lymphocytes % % Monocytes % % Eosinophils % % Basophils % % Neutrophils # (1.3-7.7) k/uL Lymphocytes # (1.0-4.8) k/uL Monocytes # (0-1.0) k/uL Eosinophils # (0-0.7) k/uL Basophils # (0-0.2) k/uL Hypochromasia PT (9.0-12.0) sec INR (<1.2) Sodium (137-145) mmol/L Potassium (3.5-5.1) mmol/L Chloride (98-107) mmol/L Carbon Dioxide (22-30) mmol/L Anion Gap mmol/L BUN (7-17) mg/dL Creatinine (0.52-1.04) mg/dL Est GFR (CKD-EPI)AfAm (>60 ml/min/1.73 sqM) Est GFR (CKD-EPI)NonAf (>60 ml/min/1.73 sqM) Glucose (74-99) mg/dL Calcium (8.4-10.2) mg/dL Magnesium (1.6-2.3) mg/dL Urine Color Yellow Urine Appearance Cloudy H (Clear) Urine pH 5.5 (5.0-8.0) Ur Specific [place] 1.027 (1.001-1.035) Urine Protein Trace H (Negative) Urine Glucose (UA) Negative (Negative) Urine Ketones Negative (Negative) Urine Blood Negative (Negative) Urine Nitrite Positive H (Negative) Urine Bilirubin Negative (Negative) Urine Urobilinogen <2.0 (<2.0) mg/dL Ur Leukocyte Esterase Large H (Negative) Urine RBC 7 H (0-5) /hpf Urine WBC 36 H (0-5) /hpf Urine WBC Clumps Occasional H (None) /hpf Ur Squamous Epith Cells 2 (0-4) /hpf Urine Bacteria Many H (None) /hpf Urine Mucus Occasional H (None) /hpf Urine Yeast (Budding) Rare H (None) /hpf Disposition Clinical Impression: Anemia, Confusion Disposition: HOME SELF-CARE Condition: Fair Instructions (If sedation given, give patient instructions): Urinary Tract Infection in Women (ED), Anemia (ED) Additional Instructions: Patient will need to have her hemoglobins monitored. Furthermore she should be monitored for signs of GI bleed or bleeding. Patient's hemoglobin (9.3) is slightly lower than her baseline. She is on anticoagulation medications that can exacerbated bleeding. Prescriptions: Cephalexin [Keflex] 500 mg PO Q6HR 5 Days #20 cap Is patient prescribed a controlled substance at d/c from ED?: No Referrals: Ozzie Grant DO [Primary Care Provider] - 1-2 days
[2021-10-07 21:38] VITALS: BP 166/60; PULSE 87; TEMP 97.8
== END 2021-10-07 21:38 | disposition home or self-care (01) ==
LOC: EC 16:10
DX: D64.9 Anemia, unspecified (principal); R41.0 Disorientation, unspecified; I10 Essential (primary) hypertension; I48.91 Unspecified atrial fibrillation; Z88.8 Allergy status to other drugs, medicaments and biological substances; Z88.5 Allergy status to narcotic agent; Z88.6 Allergy status to analgesic agent; Z79.82 Long term (current) use of aspirin; Z79.899 Other long term (current) drug therapy; Z79.01 Long term (current) use of anticoagulants; Z87.891 Personal history of nicotine dependence
CPT/HCPCS: 36415; 93005; 80048; 83735; 85025; 85610; 81001; 87086; 99285; 96374; J0696; 87077; 87186